=== PATIENT | female | born 1940 | race Caucasian/White ===

== ENCOUNTER → 2017-05-24 | Outpatient (CLI) | payer MEDICARE, BC ==
[~2017-05-24] MED LIST: ACETAMINOPHEN500 M3 OR; ACETAMINOPHEN500 M3 PO; BISOPROLOL 5MG T5 MG PO; CALCIUM 500 + D1 TA1 PO; CHEWABLE ASPIRI81 MG OR; ESTRADIOL0.5 MG OR; KEFLEX 500MG.500 MG PO; LASIX 40MG. TAB40 MG PO; LASIX40 MG OR; LIPITOR20 M1 OR; LIPOFLAVONOID1 TAB PO; LORAZEPAM0.5 MG NG; MEDROXYPROGEST2.5 M1 OR; METOPROLOL 25 M25 MG PO; METOPROLOL SUCC25 M1 PO; POTASSIUM CHLO20 ME2 PO; RESTORIL 15MG C15 MG PO; WARFARIN SODIU2.5 MG OR; WARFARIN SODIU2.5 MG PO
--- NOTE | 2017-05-28 12:45 | RADIOLOGY REPORT PS360 ---
DIG MAMM-SCREEN JOANNA W/CAD CAD Screening ORDERING PHYSICIAN : Jamari Shoemaker MD PATIENT AGE: 76 years GENDER: Female COMPARISON: Previous mammograms: May 2016, December INDICATION: Routine screening no hormones no new complaints. Previous stereotactic biopsy right breast. Family history. Mother with breast cancer. TECHNIQUE: Standard CC and MLO images were obtained. R2 CAD reviewed. Additional nipple profile cc views bilaterally helpful FINDINGS: Mild/moderate fibroglandular elements bilaterally. Moderate density. Stable areas of mild asymmetry. No dominant mass nor suspicious calcification. No significant new findings. RIGHT BREAST: Minor density at the superior right breast MLO view is similar to previous studies. Can be followed metallic clip from previous particularly is biopsy noted right breast. LEFT BREAST: Minimal density at the lateral left breast is stable. Area minimal density seen on cc view nipple profile, dissipates on the other CC and MLO view thus appears be merely summation shadow. IMPRESSION: Stable bilateral mammogram with no significant new findings. Stable mild asymmetry BI-RADS CATEGORY: 2_Benign RECOMMENDED FOLLOWUP: 12M 12 MONTH FOLLOW-UP (A letter has been sent to the patient regarding results of the study.)
== END ==
LOC: RAD 10:38
DX: Z12.31 Encounter for screening mammogram for malignant neoplasm of breast (principal)
CPT/HCPCS: G0202

== ENCOUNTER 2017-06-02 00:02 | Emergency (ER) | payer MEDICARE, BC ==
[~2017-06-02] VITALS: Ht 152.4 cm; Wt 65.3 kg
[2017-06-02] MEDS ORDERED: K-DUR 20MEQ TA20 MEQ PO (00:15)
[2017-06-02] MEDS ORDERED: ASPIRIN 81MG TA81 MG PO (00:16)
[2017-06-02] MEDS ORDERED: BISOPROLOL 5MG T5 MG PO (00:16)
[2017-06-02] MEDS ORDERED: WARFARIN SODIU2.5 MG PO (00:17)
[2017-06-02] MEDS ORDERED: TEMAZEPAM15 MG PO (00:18)
[2017-06-02] MEDS ORDERED: LASIX 40MG. TAB40 MG PO (00:19)
[2017-06-02] MEDS ORDERED: CALCIUM ACETAT667 MG PO (00:20)
--- NOTE | 2017-06-02 00:29 | Emergency Room Report ---
History of Present Illness Time Seen by MD Post Presenting Problem in Triage Pt arrived: Presenting Problem: Onset of symptoms date/time:/ or onset unknown for: Treatment Prior to Arrival: [facility] [employer] Provided by: Sepsis Risk Assessment: Temp: B/P: MAP: Pulse: Resp: Recent fever? Clinical Suspician of Infection? Mental Status: Sepsis Risk: Have you (or family members/close friends) recently traveled outside the [place]? If Yes, where/when: Have you had exposure to infectious disease within the past month? TB? Other? Specify: Source patient, RN notes reviewed, old records Exam Limitations no limitations Comment hives after restaril with no wheezing or throat closing Cardiac Chest Pain Chest pain indicative of cardiac No Timing/Duration this evening Severity moderate ALLERGIES Coded Allergies: Sulfa (Sulfonamide Antibiotics) (Mild, 02/01/16) acetaminophen (From LORTAB) (Mild, 02/01/16) amoxicillin (Mild, 02/01/16) cetirizine (Mild, 02/01/16) clarithromycin (Mild, 02/01/16) dexamethasone (Mild, 02/01/16) doxepin (Mild, 02/01/16) erythromycin base (Mild, 02/01/16) hydrocodone (From LORTAB) (Mild, 02/01/16) risedronate sodium (Mild, 02/01/16) Home Medications Active Scripts Metoprolol Tartrate (Metoprolol 25MG) 25 MG PO BID #60 Prov: 05/02/11 Reported Medications Acetaminophen (Acetaminophen Extra Strength) 1 TAB PO PRN CALCIUM CARBONATE/VITAMIN D3 (Oyster Shell Calcium-Vit D Tab) 2 TAB PO DAILY Aspirin (Aspirin, Chewable) 1 TAB OR DAILY WARFARIN SOD (Warfarin 2.5MG) 2.5 MG PO MTTHFS WARFARIN SOD (Warfarin 2.5MG) 3.75 MG PO WED SUN Temazepam (Restoril 15MG) 15 MG PO QHSP Furosemide (Lasix 40MG) 40 MG PO DAILYP PRN FLUID POTASSIUM CHL (Potassium Chloride) 20 MEQ PO DAILYP PRN SUPPLEMENT BISOPROLOL FUMARATE (Bisoprolol 5MG) 10 MG PO DAILY History Medical History General CAD? No Angina: No [place]: No Hypertension? No Hyperlipidemia? No CHF? No DVT? Yes PE? No COPD? No Asthma? No Anemia? No GERD? No Gastric ulcers? No GI Bleed? No Hernia? No Thyroid Problems? No Hypothyroidism? No CVA? No Seizures? No Diabetes? No Renal Insuffiency? No End Stage Renal Disease? No UTI? No Stones? No BPH? No GB Disease: No Nephritic Syndrome? No Asplenia? No Hepatitis? No Sickle Cell Disease? No Arthritis? Yes Migraines? No Cataracts? No Glaucoma? No MRSA? No HIV? No TB? No Anxiety? No Depression? No Cancer? No More? Yes Additional hx: MECHANICAL HEART VALVE Immunization Hx DT/Tetanus < 1 YR AGO Flu THIS YR Pneumonia 1-4 YRS Surgical Hx Previous Surgery?Y RIGHT KNEE ARTHROSCOPY Back Surgery MITRAL VALVE SURGERY FOR HAMMER TOE Family History Family Hx Diabetes No CAD No Hypertension Yes Hyperlipidemia No Cancer No TB No Social History Alcohol Alcohol: No Drugs none Review of Systems All Other Systems Reviewed and Negative Constitutional denies fever Eyes denies drainage ENT denies: ear discharge, epistaxis, throat pain, throat swelling. Respiratory denies cough, denies shortness of breath Cardiovascular denies chest pain, denies syncope Gastrointestinal denies vomiting Genitourinary denies: dysuria. Musculoskeletal denies joint pain, denies joint swelling Skin see HPI, rash Psychiatric/Neurological denies headache, denies seizure Physical Exam - WBC >12,000 or <4,000 or 10% bands? 2 or more SIRS Criteria Met? B/P: MAP: Creatinine >2.0? UA output<0.5ml/kg/hr for 2 hrs? Platelet count >100,000? Lactate >2.0mmol/1? INR >1.2 or PTT > than 60 sec? Evidence of Organ Dysfunction? Provider documented clinical suspician of infection? Sepsis Criteria Count: Sepsis Risk: General Appearance no apparent distress Eye Exam - bilateral eye PERRL, bilateral eye EOMI Ear, Nose, Throat normal ENT inspection Neck supple Respiratory Status No: respiratory distress. Cardiovascular regular rate/rhythm Extremities normal inspection Strength 4 Upper Ext (L), 4 Upper Ext (R), 4 Lower Ext (L), 4 Lower Ext (R) Neurologic alert, barrel filler II-XII nml as tested Reflexes Reflexes normal No Mental status normal mood/affect Skin hives Medical Decision Making LABS/Meds/Orders Pt receiving controlled substance in ED? No Results/Orders Current Medication Orders Sig/Douglas Start time Last Medication Dose Route Stop Time Status Admin Diphenhydramine HCl 25 MG ONCE ONE 06/02 003 DCr 06/02 IM 06/02 31 0026 Departure Departure Time of Disposition 30 Disposition DC Home or Self Care(routine) Clinical Impression Primary Impression: Urticaria due to drug allergy Condition STABLE Referrals Jamari Shoemaker MD (PCP) Patient Instructions DI for Hives Additional Instructions call pcp in am Discharge Counseling Counseled pt/family regarding diagnosis, follow up needs ED Critical Care Critical Care No at 0032
[2017-06-02 00:42] VITALS: BP 135/61
== END 2017-06-02 00:45 | disposition home or self-care (01) ==
LOC: ER 00:02
DX: L50.0 Allergic urticaria (principal); T42.4X5A Adverse effect of benzodiazepines, initial encounter; Z79.01 Long term (current) use of anticoagulants; Z79.82 Long term (current) use of aspirin; Z88.2 Allergy status to sulfonamides; Z88.6 Allergy status to analgesic agent